=== PATIENT | female | born 1975 | race Caucasian/White ===

== ENCOUNTER → 2019-11-28 12:28 | Outpatient (CLI) | payer OTHER, SELFPAY ==
--- NOTE | ~2019-11-28 | MM_ITS ---
EXAMINATION: Comparison to multiple prior studies sequentially, with oldest reviewed study dated . HISTORY: Screening mammogram TECHNIQUE: Craniocaudal and mediolateral oblique 3-D tomosynthesis images were obtained and synthetic 2-D images were generated. CAD analysis was submitted and interpreted. COMPARISON: Comparison to multiple prior studies sequentially, with oldest reviewed study dated 02/23. BREAST PARENCHYMAL COMPOSITION: The breasts are extremely dense, which lowers the sensitivity of mamm ography. FINDINGS: There is no evidence of suspicious mass, calcification, or architectural distortion to sugg est malignancy in either breast. There has been no suspicious interval change. IMPRESSION: 1. No mammographic evidence of malignancy. 2. Recommend routine screening mammography in one year. BI-RADS Category 1: Negative Reviewed, dictated and finalized at location A.
== END ==
PROVIDERS: PCP Family Medicine; Visit Provider Obstetrics & Gynecology
DX: Z12.31 Encounter for screening mammogram for malignant neoplasm of breast (principal)
CPT/HCPCS: 77063; 77067

== ENCOUNTER → 2022-07-06 10:06 | Outpatient (CLI) | payer OTHER, SELFPAY ==
--- NOTE | ~2022-07-06 | MM_ITS ---
EXAMINATION: MM screening [facility] BI w amandeep HISTORY: Screening mammogram TECHNIQUE: Craniocaudal and mediolateral oblique 3-D tomosynthesis images were obtained and synthetic 2-D images were generated. CAD analysis was submitted and interpreted. COMPARISON: 11/28/2019, 07/17/2018 BREAST PARENCHYMAL COMPOSITION: The breasts are extremely dense, which lowers the sensitivity of mamm ography. FINDINGS: No suspicious mass, calcification, or architectural distortion are identified in either topher ast to suggest malignancy. There has been no suspicious interval change. IMPRESSION: 1. No mammographic evidence of malignancy. 2. Recommend routine screening mammography in one year. BI-RADS Category 1: Negative Reviewed, dictated and finalized at location A.
== END ==
PROVIDERS: PCP Family Medicine; Visit Provider Physician Assistant Medical
DX: Z12.31 Encounter for screening mammogram for malignant neoplasm of breast (principal)
CPT/HCPCS: 77063; 77067

== ENCOUNTER 2023-02-06 11:17 | Emergency (ER) | payer OTHER, SELFPAY ==
--- NOTE | ~2023-02-06 | XR_ITS ---
EXAMINATION: XR foot LT min 3V DATE: 02/06/2023 11:55 INDICATION: Left foot injury. TECHNIQUE: 4 views of left foot were obtained. COMPARISON: None. FINDINGS: There is mild hallux valgus. There is a comminuted intra-articular fracture of first distal phalanx in near-anatomic alignment. There is a nondisplaced intra-articular stellate fracture of hea d of first proximal phalanx. There is mild osteoarthrosis of first metatarsophalangeal joint. There i s an enthesophyte at plantar aspect of calcaneal tuberosity. IMPRESSION: 1. Fractures of first proximal and distal phalanges. Reviewed, dictated and finalized at location A.
--- NOTE | 2023-02-06 11:34 | ED.LOWEXIN ---
HPI - Extremity Injury (Lower) General Chief Complaint: Extremity Injury, Lower Stated Complaint: lower extremity injury Time Seen by Provider: 02/06/23 11:34 Source: patient Mode of arrival: ambulatory Limitations: no limitations History of Present Illness HPI Narrative: Betty is a 47-year-old female patient presenting to clinic today with complaints of left great toe pain and some discomfort and the other toes. She reports she dropped a 45 lb weight plate on it this morning while she was at the gym. Has bruising and swelling to the proximal and the distal left great toe. Also had some pain initially to the for other toes however that the pain has improved Related Data Home Medications Medication Instructions Recorded Confirmed bupropion HCl 300 mg 24 hr tablet, mg PO 02/06/23 extended release levothyroxine 150 mcg tablet mcg 02/06/23 Allergies Allergy/AdvReac Type Severity Reaction Status Date / Time aspirin Allergy Mild Unverified 11/16/11 10:38 ibuprofen Allergy Mild Unverified 11/16/11 10:38 Review of Systems Review of Systems: Pertinent positives per HPI. Patient denies any fever, chills, rash, headache, visual changes, dizziness, cough, runny nose, sore throat, shortness of breath, chest pain, palpitations, nausea, vomiting, diarrhea, constipation, abdominal pain, or any urinary issues. PMFSH Comments At the time of my signature, I reviewed and agree with the nursing past medical, surgical, social, and family history. There is no relevant family history pertinent to the patient complaint. Exam Narrative: General: Well-developed, well nourished, in no apparent distress Head: Normocephalic, atraumatic. Cardio: Regular rate and rhythm, s1 and s2 normal, no murmur appreciated. Resp: Clear to auscultation bilaterally, no rhonchi, rales, wheezing or rubs. Musculoskeletal: Swelling and bruising noted over the base of the left great toe just proximal of the toenail bed and over the proximal toe, tender to palpation over this area, mild tenderness to palpation over the 2nd 3rd 4th and 5th toe, limited range of motion to the left great toe otherwise grossly normal range of motion of the other toes, muscle strength strong and equal, peripheral pulse strong, no cyanosis, normal gait and station Course Course Emergency Course: Portions of this record may have been created with voice recognition software. Level of Care: Express Care Visit Vital Signs Vital signs: Vital signs reviewed MDM - Extremity Injury (Lower) MDM Narrative Medical decision making narrative: At the time of visit patient is resting comfortably on exam table. X-ray of the left foot was obtained shows a comminuted fracture of the distal phalanx and a nondisplaced fracture of the proximal phalanx of the left great toe. Postop she was placed and supportive measures were discussed with the patient and she voiced understanding. Will will send for orthopedic evaluation. Differential Diagnosis Differential diagnosis: Likely fracture of toe and other (Toe contusion, soft tissue swelling) Imaging Data Radiologist's impression: [address] [address] XRay Report Signed Patient: Betty Larsen : 1975 MR#: [id number] Age/Sex: 47 / F Acct:[id number] Loc: [facility]? ? ADM Date: 02/06/23Attending Dr: Ordering Physician: Good Sandhu APRN Date of Service: 02/06/23 Procedure(s): XR foot LT min 3V Accession Number(s): [id number] cc: Good Sandhu APRN; Octaviano, Fabio Tyler MD~ EXAMINATION: XR foot LT min 3V DATE: 02/06/2023 11:55 INDICATION: Left foot injury. TECHNIQUE: 4 views of left foot were obtained. COMPARISON: None. FINDINGS: There is mild hallux valgus. There is a comminuted intra-articular fracture of first distal phalanx in near-anatomic alignment. There is a nondisplaced intra-articular stellate fracture of h
[2023-02-06 11:42] VITALS: BP 122/79; PULSE 78; RESP 16; TEMP 37.2; O2SAT 99
== END 2023-02-06 12:17 | disposition home or self-care (01) ==
PROVIDERS: Emergency Provider Nurse Practitioner Family; PCP Family Medicine
DX: S92.415A Nondisplaced fracture of proximal phalanx of left great toe, initial encounter for closed fracture (principal); W20.8XXA Other cause of strike by thrown, projected or falling object, initial encounter
CPT/HCPCS: 73630; 99214; G0463

== ENCOUNTER 2023-03-23 12:17 | Emergency (ER) | payer OTHER, SELFPAY ==
--- NOTE | ~2023-03-23 | XR_ITS ---
EXAMINATION: XR foot RT min 3V DATE: 03/23/2023 13:36 INDICATION: Right foot metatarsal pain with inability to bear weight TECHNIQUE: Dorsoplantar, two oblique and lateral views of the right foot were obtained. COMPARISON: None. FINDINGS: Alignment is normal. No fracture. Joint spaces are normal. No erosions or periosteal reaction. Modera te-sized plantar calcaneal spur. Small heterotopic ossicle near the tip the medial malleolus likely s equela of chronic deltoid ligament sprain. Soft tissues are unremarkable. No ankle joint effusion. IMPRESSION: 1. No acute osseous abnormality. Reviewed, dictated and finalized at location A.
[2023-03-23 12:18] VITALS: BP 100/62; PULSE 88; RESP 16; TEMP 37.3; O2SAT 100
[2023-03-23 12:24] VITALS: BP 115/75; PULSE 75; RESP 20; O2SAT 99
--- NOTE | 2023-03-23 14:43 | ED.LOWEXIN ---
HPI - Extremity Injury (Lower) General Chief Complaint: Extremity Injury, Lower Stated Complaint: R FOOT PAIN Time Seen by Provider: 03/23/23 13:08 Source: patient Mode of arrival: ambulatory Limitations: no limitations History of Present Illness HPI Narrative: This is a 48-year-old female that presents to the emergency department for right foot pain noted over the last couple of hours. No known injury or trauma. The pain is worse with weightbearing and relieved with rest. Reports some swelling noted to the area. Denies fever, erythema, or numbness. Related Data Home Medications Medication Instructions Recorded Confirmed bupropion HCl 300 mg 24 hr tablet, mg PO 02/06/23 extended release levothyroxine 150 mcg tablet mcg 02/06/23 Allergies Allergy/AdvReac Type Severity Reaction Status Date / Time aspirin Allergy Mild Anaphylaxis Unverified 03/23/23 12:31 ibuprofen Allergy Mild Anaphylaxis Unverified 03/23/23 12:31 NSAIDS (Non-Steroidal Allergy Anaphylaxis Verified 03/23/23 12:31 Anti-Inflamma Review of Systems Review of Systems: CONSTITUTIONAL: Denies fever SKIN: Denies rash MUSCULOSKELETAL: Reports joint pain, and myalgia. NEUROLOGIC: Denies numbness All systems reviewed & are unremarkable except as noted in HPI and below PMFSH Past Medical History Medical History (Updated 03/23/23 @ 14:47 by Annette Arita PA-C) History of hypothyroidism Social History Social History (Updated 03/23/23 @ 14:47 by Annette Arita PA-C) Substance use: never Exam Narrative: GENERAL: Well-appearing, well-nourished, and in no acute distress. HEAD: Normocephalic, atraumatic. EYES: EOMI. EXTREMITIES: Normal range of motion, except mildly decreased active ROM in the ankle due to pain. No edema, erythema or obvious deformity. Normal DP pulse. Normal sensation. Normal capillary refill SKIN: Warm, dry, no rash. NEURO: No focal deficits. Alert and oriented x3. PSYCH: Normal mood and affect Course Course Emergency Course: Patient and family updated on work-up and agree with plan of care Vital Signs Vital signs: Vital Signs Temperature 99.2 F 03/23/23 12:18 Pulse Rate 88 03/23/23 12:18 Respiratory Rate 16 03/23/23 12:18 Blood Pressure 100/62 03/23/23 12:18 Pulse Oximetry 100 03/23/23 12:18 Oxygen Delivery Room Air 03/23/23 12:18 Temperature 99.2 F 03/23/23 12:18 Pulse Rate 75 03/23/23 12:24 Respiratory Rate 20 03/23/23 12:24 Blood Pressure 115/75 03/23/23 12:24 Pulse Oximetry 99 03/23/23 12:24 Oxygen Delivery Room Air 03/23/23 12:24 MDM - Extremity Injury (Lower) MDM Narrative Medical decision making narrative: Patient presents emergency department for right foot pain noted over the last couple of hours. No known injury or trauma. Patient is neurovascularly intact. No erythema edema, or obvious deformity. Right foot x-rays without acute osseous abnormalities. Patient and family were updated on case findings. Instructed to rest, ice and take [id number] pain medication as needed. She is to follow-up with her primary provider. She was given warnings to return to the ED Differential Diagnosis Differential diagnosis: Likely ankle sprain and strain and other (Foot sprain, foot fracture) Imaging Data Radiologist's impression: ITS Impressions Foot X-Ray 03/23/23 13:41 IMPRESSION: 1. No acute osseous abnormality. Critical Care Time Critical Care Time Critical Care Time: No Discharge Plan Discharge Clinical Impression: Acute pain of right foot Patient Disposition: Home, Self-Care Condition: Stable Instructions: Foot Sprain (ED) Additional Instructions: Return to the ER if you experience fever, redness and swelling of your extremity, numbness or any other symptoms that are concerning to you Wear QUOC wrap and use crutches. No weight on the affected leg until able to bear weight without pain. Ice
== END 2023-03-23 14:47 | disposition home or self-care (01) ==
PROVIDERS: Emergency Provider Physician Assistant; PCP Family Medicine
DX: M79.671 Pain in right foot (principal); E03.9 Hypothyroidism, unspecified
CPT/HCPCS: 73630; 99283

== ENCOUNTER 2024-03-18 10:01 | Outpatient (CLI) | payer OTHER, SELFPAY ==
--- NOTE | ~2024-03-18 | MM_ITS ---
EXAMINATION: MM screening [facility] BI w amandeep HISTORY: Screening TECHNIQUE: Craniocaudal and mediolateral oblique 3-D tomosynthesis images were obtained and synthetic 2-D images were generated. CAD analysis was submitted and interpreted. COMPARISON: Comparison to multiple prior studies sequentially, with oldest reviewed study dated 02/23. BREAST PARENCHYMAL COMPOSITION: Dense: The breasts are extremely dense, which lowers the sensitivity of mammography. FINDINGS: There is no evidence of suspicious mass, calcification, or architectural distortion to sugg est malignancy in either breast. There has been no suspicious interval change. IMPRESSION: 1. No mammographic evidence of malignancy. 2. Recommend routine screening mammography in one year. BI-RADS Category 1: Negative Reviewed, dictated and finalized at location B.
== END 2024-03-18 10:02 ==
LOC: MICIMG 10:02
PROVIDERS: PCP Obstetrics & Gynecology; Visit Provider Obstetrics & Gynecology
DX: Z12.31 Encounter for screening mammogram for malignant neoplasm of breast (principal)
CPT/HCPCS: 77063; 77067

== ENCOUNTER 2025-06-19 11:20 | Outpatient (CLI) | payer OTHER, SELFPAY ==
--- NOTE | ~2025-06-19 | US_ITS ---
EXAMINATION: US pelvic complete w TV, 06/19/2025 11:22 CDT HISTORY: Excessive and frequent menstruation with irregular Comparison: None Technique: [place]-scale and color Doppler images were obtained. Findings: Uterus: Uterus anteverted 11.7 x 6.3 x 7.2 cm, largest probable anterior uterine body fibroid 2.9 x 2.4 cm appears partially submucosal. . Right Ovary:Right ovary 2.1 x 1.3 x 2.5 cm, no adnexal mass, normal flow. Left Ovary: Left ovary 2.3 x 1.7 x 2.5 cm, no adnexal mass, normal flow. Free Fluid: None Impression: Fibroid detailed above which appears partially submucosal. Contrast-enhanced MRI is suggested to further evaluate Reviewed, dictated and finalized at location P. Impression: Fibroid detailed above which appears partially submucosal. Contrast-enhanced MR I is suggested to further evaluate
== END 2025-06-19 11:21 | disposition home or self-care (01) ==
LOC: MICIMG 11:20
PROVIDERS: PCP Obstetrics & Gynecology; Visit Provider Obstetrics & Gynecology
DX: D25.0 Submucous leiomyoma of uterus (principal); N92.1 Excessive and frequent menstruation with irregular cycle
CPT/HCPCS: 76830; 76856